=== PATIENT | female | born 1955 | race Caucasian/White ===

== ENCOUNTER → 2018-03-18 | Outpatient (CLI) | payer OTHER ==
--- NOTE | 2018-03-18 10:45 | RAD ---
2 view left hip study Clinical indications: Disability determination. Left hip pain. FINDINGS: No acute fracture or dislocation or osteolytic process is seen. There is mild degenerative spurring of the left femoral head. There is mild degenerative subchondral cyst formation of the superior lateral aspect of the acetabulum. No significant joint space narrowing is seen. IMPRESSION: No acute osseous abnormality. Mild primary degenerative osteoarthritis of the left hip joint. Electronically signed by: Shankar Fierro MD (03/18/2018 10:41 AM) [facility]
== END | disposition home or self-care (01) ==
LOC: DXRAD 09:28
PROVIDERS: ATTEND Surgery
DX: Z02.71 Encounter for disability determination (principal); M16.12 Unilateral primary osteoarthritis, left hip
CPT/HCPCS: 73502

== ENCOUNTER 2018-10-25 17:54 | Inpatient (IN) | payer SELFPAY ==
[~2018-10-25] VITALS: Ht 175.3 cm; Wt 102.1 kg
[2018-10-25] MEDS ORDERED: IV RINGERS SOLUTION,LACTATED 1,000 ML IV SCH (17:57)
[2018-10-25 18:37] LABS: BASO # 0.1 x10^3/uL (0.0-0.2); BASO % 1 % (0-3); EOS # 0.1 x10^3/uL (0.0-0.7); EOS % 1 % (0-3); HEMATOCRIT 37.9 % (36.0-47.0); HEMOGLOBIN 12.6 g/dL (12.0-15.5); LYMPH # 2.4 x10^3/uL (1.0-4.8); LYMPH % 27 % (24-48); MEAN CORPUSCULAR HEMOGLOBIN 30 pg (25-35); MEAN CORPUSCULAR HGB CONC 33 g/dL (31-37); MEAN CORPUSCULAR VOLUME 91 fL (79-100); MONO # 0.4 x10^3/uL (0.0-1.1); MONO % 4 % (0-9); NEUT # 6.2 x10^3uL (1.8-7.7); NEUT % 68 % (31-73); PLATELET COUNT 435 x10^3/uL (140-400); RED BLOOD COUNT 4.18 x10^6/uL (3.50-5.40); RED CELL DISTRIBUTION WIDTH 14.8 % (11.5-14.5); WHITE BLOOD COUNT 9.2 x10^3/uL (4.0-11.0)
--- NOTE | 2018-10-25 18:40 | EKG ---
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
[2018-10-25 18:42] LABS: BGAS PH 7.34 (7.35-7.45)
[2018-10-25 19:00] LABS: ALBUMIN 3.4 g/dL (3.4-5.0); CREATININE 1.1 mg/dL (0.6-1.0); DIRECT BILIRUBIN 0.1 mg/dL (0.0-0.2); MAGNESIUM 2.3 mg/dL (1.8-2.4); POTASSIUM 3.7 mmol/L (3.5-5.1); TOTAL BILIRUBIN 0.2 mg/dL (0.2-1.0); TOTAL PROTEIN 7.4 g/dL (6.4-8.2)
[2018-10-25 19:21] LABS: BARBITURATES NEG (NEG); BENZODIAZEPINES POS (NEG); CANNABINOIDS POS (NEG); COCAINE NEG (NEG); METHADONE NEG (NEG); OPIATES NEG (NEG); PHENCYCLIDINE NEG (NEG)
[2018-10-25 19:22] LABS: AMPHETAMINE/METHAMPHETAMINE NEG (NEG)
[2018-10-25 19:55] LABS: BACTERIA,URINE FEW /HPF (0-FEW); BILIRUBIN,URINE NEG (NEG); CLARITY,URINE HAZY; COLOR,URINE YELLOW; GLUCOSE,URINE >=1000 mg/dL (NEG); GRANULAR CASTS,URINE FEW /HPF; HYALINE CASTS, URINE MOD /HPF; NITRITE,URINE NEG (NEG); SQUAMOUS EPITHELIAL CELL,UR FEW /LPF; UROBILINOGEN,URINE 0.2 mg/dL (0.2 mg/dL)
--- NOTE | 2018-10-25 19:57 | ED.ADGEN ---
Past History Past Medical History: Diabetes, Other Adult General Chief Complaint Chief Complaint ".. I.... took ... some ..my husbands... meds...." ( Oxycodone)... " HPI HPI Patient is a 63 year old female who presents with hx of apparent over dose- that responded to nasal Narcan.x 2. Patient found nonresponsive and in respiratory distress by paramedics. Patient has apparently taken some of her 's oxycodone. Patient remained very groggy but gradually improved during ED visit. Patient does have a history of diabetes. Review of Systems Review of Systems Patient is a very poor historian Constitutional: Denies fever or chills [] Eyes: Denies change in visual acuity, redness, or eye pain [] HENT: Denies nasal congestion or sore throat [] Respiratory: Denies cough or shortness of breath [] Cardiovascular: No additional information not addressed in HPI [] GI: Denies abdominal pain, nausea, vomiting, bloody stools or diarrhea [] : Denies dysuria or hematuria [] Musculoskeletal: Denies back pain or joint pain [] Integument: Denies rash or skin lesions [] Neurologic: Denies headache, focal weakness or sensory changes [] Endocrine: Denies polyuria or polydipsia [] All other systems were reviewed and found to be within normal limits, except as documented in this note. Family History Family History Not currently available Current Medications Current Medications Current Medications Medications (Trade) Dose Ordered Sig/Apoorva Start Time Stop Time Status Last Admin Dose Admin Lactated Ringer's 1,000 ml @ 1,000 mls/hr Q1H 10/25/18 17:57 10/25/18 18:56 DC 10/25/18 18:28 1,000 MLS/HR Ondansetron HCl (Zofran) 4 mg PRN Q4HRS PRN 10/25/18 20:00 10/26/18 19:59 Allergies Allergies Allergies Coded Allergies Type Severity Reaction Last Updated Verified No Known Drug Allergies 10/25/18 No Physical Exam Physical Exam Constitutional: , no acute distress, drug or intoxicated in appearance. [] HENT: Normocephalic, atraumatic, bilateral external ears normal, oropharynx moist, no oral exudates, nose normal. [] Eyes: PERRLA, EOMI, conjunctiva normal, no discharge. [] Neck: Normal range of motion, no tenderness, supple, no stridor. [] Cardiovascular: Tachycardia Heart rate ill-regular rate and rhythm no murmur [] Lungs & Thorax: Bilateral breath sounds equal apexes scattered wheezes and basilar crackles auscultation [] Abdomen: Bowel sounds decreased, soft, no tenderness, no masses, no pulsatile masses. [] Skin: Warm, dry, no erythema, no rash. [] Back: No tenderness, no CVA tenderness. [] Extremities: No tenderness, no cyanosis, no clubbing, ROM intact, no edema. [] Neurologic: Alert and oriented but very slow to respond, moves all extremities on request., no(gross focal deficits noted. [] Psychologic: Affect flat, judgment impaired mood depressed. Current Patient Data Vital Signs Vital Signs Date Time Temp Pulse Resp B/P (MAP) Pulse Ox O2 Delivery O2 Flow Rate FiO2 10/25/18 17:55 97.5 84 12 93 Room Air Lab Results Laboratory Tests Test 10/25/18 18:15 10/25/18 18:35 10/25/18 18:51 White Blood Count 9.2 x10^3/uL (4.0-11.0) Red Blood Count 4.18 x10^6/uL (3.50-5.40) Hemoglobin 12.6 g/dL (12.0-15.5) Hematocrit 37.9 % (36.0-47.0) Mean Corpuscular Volume 91 fL (79-100) Mean Corpuscular Hemoglobin 30 pg (25-35) Mean Corpuscular Hemoglobin Concent 33 g/dL (31-37) Red Cell Distribution Width 14.8 % (11.5-14.5) H Platelet Count 435 x10^3/uL (140-400) H Neutrophils (%) (Auto) 68 % (31-73) Lymphocytes (%) (Auto) 27 % (24-48) Monocytes (%) (Auto) 4 % (0-9) Eosinophils (%) (Auto) 1 % (0-3) Basophils (%) (Auto) 1 % (0-3) Neutrophils # (Auto) 6.2 x10^3uL (1.8-7.7) Lymphocytes # (Auto) 2.4 x10^3/uL (1.0-4.8) Monocytes # (Auto) 0.4 x10^3/uL (0.0-1.1) Eosinophils # (Auto) 0.1 x10^3/uL (0.0-0.7) Basophils # (Auto) 0.1 x10^3/uL (0.0-0.2) Prothrombin Time 9.8 SEC (9.4-11.4) Prothrombin Time INR 1.0 (0.9-1.1) PTT 23 SEC (23-33) Sodium Level 140 mmol/L (136-145) Potassium Level 3.7 mmol/L (3.5-5.1) Chloride Level 101 mmol/L (98-107) Carbon Dioxide Level 23 mmol/L (21-32) Anion Gap 16 (6-14) H Blood Urea Nitrogen 19 mg/dL (7-20) Creatinine 1.1 mg/dL (0.6-1.0) H Estimated GFR (Cockcroft-Gault) 50.0 Glucose Level 364 mg/dL (70-99) H Calcium Level 9.0 mg/dL (8.5-10.1) Magnesium Level 2.3 mg/dL (1.8-2.4) Total Bilirubin 0.2 mg/dL (0.2-1.0) Direct Bilirubin 0.1 mg/dL (0.0-0.2) Aspartate Amino Transferase (AST) 39 U/L (15-37) H Alanine Aminotransferase (ALT) 29 U/L (14-59) Alkaline Phosphatase 80 U/L (46-116) Creatine Kinase 66 U/L (26-192) Troponin I Quantitative 0.033 ng/mL (0-0.055) UF-Gpg-P-Type Natriuretic Peptide 123 pg/mL (0-124) Total Protein 7.4 g/dL (6.4-8.2) Albumin 3.4 g/dL (3.4-5.0) Lipase 218 U/L (73-393) Salicylates Level 3.4 mg/dL (2.8-20.0) Salicylate Last Dose Date Unknown Salicylate Last Dose Time Unknown Acetaminophen Level < 2.0 mcg/mL (10-30) L Acetaminophen Last Dose Date Unknown Acetaminophen Last Dose Time Unknown Ethyl Alcohol Level < 10 mg/dL (0-10) Blood pH 7.34 (7.35-7.45) L Blood Gas PCO2 43 mmHg (35-45) Blood Gas PO2 71 mmHg (80-100) L Blood Gas HCO3 23 mmol/L (22-26) Arterial Bld O2 Saturation (Calc) 93 % (92-99) FiO2 21 % Urine Collection Type Unknown Urine Color Yellow Urine Clarity Hazy Urine pH 5.0 Urine Specific Clarkson >=1.030 Urine Protein 30 mg/dl (NEG-TRACE) Urine Glucose (UA) >=1000 mg/dL (NEG) Urine Ketones (Stick) Neg mg/dL (NEG) Urine Blood Trace (NEG) Urine Nitrite Neg (NEG) Urine Bilirubin Neg (NEG) Urine Urobilinogen Dipstick 0.2 mg/dL (0.2 mg/dL) Urine Leukocyte Esterase Neg (NEG) Urine RBC 3-5 /HPF (0-2) Urine WBC 1-4 /HPF (0-4) Urine Squamous Epithelial Cells Few /LPF Urine Bacteria Few /HPF (0-FEW) Urine Hyaline Casts Mod /HPF Urine Granular Casts Few /HPF Urine Mucus Slight /LPF Urine Opiates Screen Neg (NEG) Urine Methadone Screen Neg (NEG) Urine Barbiturates Neg (NEG) Urine Phencyclidine Screen Neg (NEG) Urine Amphetamine/Methamphetamine Neg (NEG) Urine Benzodiazepines Screen Pos (NEG) Urine Cocaine Screen Neg (NEG) Urine Cannabinoids Screen Pos (NEG) Urine Ethyl Alcohol Neg (NEG) EKG EKG My interpretation EKG shows a venous rate of 114 bpm. Appears to have atrial fibrillation. No findings of acute STEMI with contralateral changes. Does have septal delay[] Radiology/Procedures Radiology/Procedures I interpretation chest x-ray shows no acute cardiopulmonary findings.[] Course & Med Decision Making Course & Med Decision Making Pertinent Labs and Imaging studies reviewed. (See chart for details) [] Final Impression Final Impression 1. Mental Status Change 2. Suspect Overdosage- responded to nasal Narcan[] 3. DM 364 4. Elevated Creat l.l 5. Hypoxia 6. A. Fib. Vent rate 114 7. + Drug screen Marijuana and Benzo 8. Dehydration Dragon Disclaimer Dragon Disclaimer This electronic medical record was generated, in whole or in part, using a voice recognition dictation system. Dragon Disclaimer This chart was dictated in whole or in part using Voice Recognition software in a busy, high-work load, and often noisy Emergency Department environment. It may contain unintended and wholly unrecognized errors or omissions. Discharge Summary Visit Information Final Diagnosis Problems Medical Problems: (1) Overdose Status: Acute Brief Hospital Course Allergies Allergies Coded Allergies Type Severity Reaction Last Updated Verified No Known Drug Allergies 10/25/18 No Vital Signs Vital Signs Date Time Temp Pulse Resp B/P (MAP) Pulse Ox O2 Delivery O2 Flow Rate FiO2 10/25/18 17:55 97.5 84 12 93 Room Air Lab Results Laboratory Tests Test 10/25/18 18:15 10/25/18 18:35 10/25/18 18:51 White Blood Count 9.2 x10^3/uL (4.0-11.0) Red Blood Count 4.18 x10^6/uL (3.50-5.40) Hemoglobin 12.6 g/dL (12.0-15.5) Hematocrit 37.9 % (36.0-47.0) Mean Corpuscular Volume 91 fL (79-100) Mean Corpuscular Hemoglobin 30 pg (25-35) Mean Corpuscular Hemoglobin Concent 33 g/dL (31-37) Red Cell Distribution Width 14.8 % (11.5-14.5) Platelet Count 435 x10^3/uL (140-400) Neutrophils (%) (Auto) 68 % (31-73) Lymphocytes (%) (Auto) 27 % (24-48) Monocytes (%) (Auto) 4 % (0-9) Eosinophils (%) (Auto) 1 % (0-3) Basophils (%) (Auto) 1 % (0-3) Neutrophils # (Auto) 6.2 x10^3uL (1.8-7.7) Lymphocytes # (Auto) 2.4 x10^3/uL (1.0-4.8) Monocytes # (Auto) 0.4 x10^3/uL (0.0-1.1) Eosinophils # (Auto) 0.1 x10^3/uL (0.0-0.7) Basophils # (Auto) 0.1 x10^3/uL (0.0-0.2) Prothrombin Time 9.8 SEC (9.4-11.4) Prothromb Time International Ratio 1.0 (0.9-1.1) Activated Partial Thromboplast Time 23 SEC (23-33) Sodium Level 140 mmol/L (136-145) Potassium Level 3.7 mmol/L (3.5-5.1) Chloride Level 101 mmol/L (98-107) Carbon Dioxide Level 23 mmol/L (21-32) Anion Gap 16 (6-14) Blood Urea Nitrogen 19 mg/dL (7-20) Creatinine 1.1 mg/dL (0.6-1.0) Estimated GFR (Cockcroft-Gault) 50.0 Glucose Level 364 mg/dL (70-99) Calcium Level 9.0 mg/dL (8.5-10.1) Magnesium Level 2.3 mg/dL (1.8-2.4) Total Bilirubin 0.2 mg/dL (0.2-1.0) Direct Bilirubin 0.1 mg/dL (0.0-0.2) Aspartate Amino Transf (AST/SGOT) 39 U/L (15-37) Alanine Aminotransferase (ALT/SGPT) 29 U/L (14-59) Alkaline Phosphatase 80 U/L (46-116) Creatine Kinase 66 U/L (26-192) Troponin I Quantitative 0.033 ng/mL (0-0.055) UY-Efz-O-Type Natriuretic Peptide 123 pg/mL (0-124) Total Protein 7.4 g/dL (6.4-8.2) Albumin 3.4 g/dL (3.4-5.0) Lipase 218 U/L (73-393) Salicylates Level 3.4 mg/dL (2.8-20.0) Salicylate Last Dose Date Unknown Salicylate Last Dose Time Unknown Acetaminophen Level < 2.0 mcg/mL (10-30) Acetaminophen Last Dose Date Unknown Acetaminophen Last Dose Time Unknown Ethyl Alcohol Level < 10 mg/dL (0-10) Blood Gas pH 7.34 (7.35-7.45) Blood Gas PCO2 43 mmHg (35-45) Blood Gas PO2 71 mmHg (80-100) Blood Gas HCO3 23 mmol/L (22-26) Arterial Bld O2 Saturation (Calc) 93 % (92-99) FiO2 21 % Urine Collection Type Unknown Urine Color Yellow Urine Clarity Hazy Urine pH 5.0 Urine Specific Clarkson >=1.030 Urine Protein 30 mg/dl (NEG-TRACE) Urine Glucose (UA) >=1000 mg/dL (NEG) Urine Ketones (Stick) Neg mg/dL (NEG) Urine Blood Trace (NEG) Urine Nitrite Neg (NEG) Urine Bilirubin Neg (NEG) Urine Urobilinogen Dipstick 0.2 mg/dL (0.2 mg/dL) Urine Leukocyte Esterase Neg (NEG) Urine RBC 3-5 /HPF (0-2) Urine WBC 1-4 /HPF (0-4) Urine Squamous Epithelial Cells Few /LPF Urine Bacteria Few /HPF (0-FEW) Urine Hyaline Casts Mod /HPF Urine Granular Casts Few /HPF Urine Mucus Slight /LPF Urine Opiates Screen Neg (NEG) Urine Methadone Screen Neg (NEG) Urine Barbiturates Neg (NEG) Urine Phencyclidine Screen Neg (NEG) Urine Amphetamine/Methamphetamine Neg (NEG) Urine Benzodiazepines Screen Pos (NEG) Urine Cocaine Screen Neg (NEG) Urine Cannabinoids Screen Pos (NEG) Urine Ethyl Alcohol Neg (NEG) Brief Hospital Course Ms. Faulkner is a 63 old female who presented with hx of drug overdose- responded to nasal Narcan x 2. Admitted to Dr. Carr. Discharge Information Condition at Discharge: Improved Dischare Medications Current Medications Lactated Ringer's 1,000 ml @ 1,000 mls/hr Q1H IV Last administered on at 18:28; Admin Dose 1,000 MLS/HR; Start 10/25/18 at 17:57; Stop 10/25/18 at 18: 56; Status DC Ondansetron HCl (Zofran) 4 mg PRN Q4HRS PRN IV NAUSEA/VOMITING; Start 10/25/18 at 20:00; Stop 10/26/18 at 19:59 JOSE ALBERTO MONTGOMERY MD Oct 25, 2018 19:57
--- NOTE | 2018-10-25 19:59 | RAD ---
EXAM: Chest, single view. HISTORY: Overdose. COMPARISON: None. FINDINGS: A frontal view of the chest is obtained. There is no infiltrate, pleural effusion or pneumothorax. The heart is normal in size for portable technique. IMPRESSION: No acute pulmonary finding. Electronically signed by: Carmen Piña MD (10/25/2018 7:56 PM) [facility]
[2018-10-25] MEDS ORDERED: ONDANSETRON PF 4 MG/2 ML VIAL. IV PRN (20:00)
[2018-10-25 20:28] LABS: ACETAMIN < 2.0 mcg/mL (10-30); SALIC 3.4 mg/dL (2.8-20.0)
[2018-10-25 21:58] VITALS: BP 135/80
[2018-10-25] MEDS ORDERED: ANTI-COAG MONITOR BY PHARMACY. MC PRN (23:45)
[2018-10-26] MEDS ORDERED: IBUP400T18 PO (03:21)
[2018-10-26] MEDS ORDERED: ASPI325T8 PO (03:21)
[2018-10-26] MEDS: ENOXAPARIN ** NOTE DOSE ** SYRINGE SQ SCH ×3 (03:57→21:25)
[2018-10-26] MEDS: ACETAMINOPHEN 325 MG TABLET PO PRN ×2 (03:57→07:49)
[2018-10-26 06:28] LABS: BASO # 0.1 x10^3/uL (0.0-0.2); BASO % 1 % (0-3); EOS % 0 % (0-3); HEMATOCRIT 36.9 % (36.0-47.0); HEMOGLOBIN 12.3 g/dL (12.0-15.5); LYMPH # 1.8 x10^3/uL (1.0-4.8); LYMPH % 13 % (24-48); MEAN CORPUSCULAR HEMOGLOBIN 30 pg (25-35); MEAN CORPUSCULAR HGB CONC 33 g/dL (31-37); MEAN CORPUSCULAR VOLUME 91 fL (79-100); MONO # 0.9 x10^3/uL (0.0-1.1); MONO % 7 % (0-9); NEUT # 10.6 x10^3uL (1.8-7.7); NEUT % 79 % (31-73); PLATELET COUNT 363 x10^3/uL (140-400); RED BLOOD COUNT 4.07 x10^6/uL (3.50-5.40); RED CELL DISTRIBUTION WIDTH 14.9 % (11.5-14.5); WHITE BLOOD COUNT 13.4 x10^3/uL (4.0-11.0)
[2018-10-26 06:36] LABS: CALCIUM 9.1 mg/dL (8.5-10.1); CREATININE 0.8 mg/dL (0.6-1.0); GFR 72.2; POTASSIUM 4.3 mmol/L (3.5-5.1)
[2018-10-26 06:39] VITALS: BP 123/77
[2018-10-26 11:17] VITALS: BP 116/77
[2018-10-26] MEDS ORDERED: DEXTROSE 50% 25 GM / 50ML DISP.SYRIN. IV PRN (12:30)
[2018-10-26] MEDS: METOPROLOL TART IMMED RELEASE 25 MG TABLET PO SCH ×2 (13:14→21:25)
--- NOTE | 2018-10-26 15:20 | HP ---
ADMIT DATE: 10/26/2018 HISTORY OF PRESENT ILLNESS: The patient is a 63-year-old female patient, who apparently was found by the landlord together with her unresponsive. Apparently, she took some of her 's oxycodone and has responded to nasal Narcan x 2. She was actually found unresponsive and in respiratory distress by paramedics. By the time she arrived to the Emergency Room her level of consciousness has improved. On questioning her as to why she took the medications said she has generalized aches and pains, all her joints are aching and she combined her oxycodone with the Ativan. PAST MEDICAL HISTORY: Apparently unremarkable. She has not seen a doctor for more than 10 years, although she does have generalized osteoarthritis. Her blood sugar was high at 364 indicating that she is diabetic. She has bilateral cataract that has not been removed surgically yet. PAST SURGICAL HISTORY: Significant for cyst removal of her right side of the neck, total abdominal hysterectomy, bilateral salpingo-oophorectomy. ALLERGIES: She has no known drug allergies. MEDICATIONS: She is normally on [id number] medication taking aspirin, ibuprofen and Tylenol for her aches and pains. FAMILY HISTORY: She has one brother older and alive, does not know any medical problem. FAMILY HISTORY: Her father at age of 81, the cause of is not known and her mother of old age. Again, she does not know the cause of her . SOCIAL HISTORY: She is , but apparently still lives with her ex-. She has a son and a daughter. She smokes 2-3 cigarettes per day. She does not drink alcohol, but uses marijuana. 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 REVIEW OF SYSTEMS: She has bilateral cataracts, but denied any glaucoma or macular degeneration. Denied any earache, tinnitus or sensorineural deafness. Denied any nosebleeds, stuffy nose or postnasal drip. Denied any sore throat, sore tongue, toothache, hoarseness of voice or difficulty swallowing. She denied any nausea, vomiting, diarrhea or constipation. Denied any hematemesis, melena or hematochezia. Denied any dysuria, frequency or hematuria. Denied any chest pain, shortness of breath, orthopnea, paroxysmal nocturnal dyspnea. Denied any cough, phlegm or hemoptysis. PHYSICAL EXAMINATION: GENERAL: On arrival to the Emergency Room, she was groggy, but arousable. She was slightly pale, but no jaundice, cyanosis, or thyromegaly. No jugular venous distension. No lower limb edema. VITAL SIGNS: Her heart rate was 117 and irregularly irregular. Her blood pressure was 135/90, temperature was 97.6, respiratory rate was 18 and oxygen saturation was 97% on room air. HEAD, EYES, EARS, NOSE AND THROAT: Normocephalic, atraumatic. NECK: Supple. HEART: Showed normal first and second heart sounds. No gallop, rub or murmur. CHEST: Clear to auscultation. No crepitation or rhonchi. ABDOMEN: Distended, soft, nontender. No guarding or rigidity. No organomegaly. All hernial orifice intact. Bowel sounds normal. NEUROLOGIC: She was lethargic, but arousable. She did respond well to the nasal Narcan. All her cranial nerves intact. EXTREMITIES: She moves extremities without difficulty. LABORATORY DATA: While in the Emergency Room, she has had lab work done, which showed a white cell count 9200, hemoglobin 12.6, hematocrit 37.69, MCV 91, and platelet count of 435,000 with a manual differential showed 68% polymorphs and 27 lymphocytes. Her blood gases showed a pH of 7.34, pCO2 of 43, pO2 of 71, bicarbonate 23, and oxygen saturation was 93% and FiO2 of 21%. Her prothrombin time was 9.8, INR of 1, aPTT was 23. Her urinalysis showed the urine was yellow, hazy with a pH of 5, specific gravity of 1.030. There is a small amount of protein, large amount of glucose. Her ketones were negative. There was trace of blood, negative for nitrite and leukocyte esterase with 3-5 rbc's, 1-4 wbc's, very few bacteria. Her toxic screen was positive for cannabinoids and benzodiazepine. While in the Emergency Room, she has had a chest x-ray done, which showed that she has no acute pulmonary finding. ASSESSMENT AND PLAN: The patient was admitted with altered mental status that she has apparently overdosed on her 's oxycodone. She was found to have type 2 diabetes as her blood sugar was high at 354 and new onset atrial fibrillation. Her creatinine was slightly elevated. She has also hypoxic respiratory failure and her drug screen was positive for marijuana and benzos. She was slightly dehydrated and her creatinine also slightly elevated to 1.1. We will continue with IV fluid and we will monitor her blood sugar and also consult the cardiology team for new onset atrial fibrillation. MEJIA RESTREPO MD DR: TATI/sue JOB#: [id number] / [id number]
[2018-10-26 15:27] VITALS: BP 122/86
[2018-10-26] MEDS: INSULIN LISPRO 300 UNITS/3 ML INSULN.PEN. SQ SCH (17:00)
[2018-10-26 19:30] VITALS: BP 114/79
[2018-10-26 22:15] VITALS: BP 129/83
--- NOTE | 2018-10-26 22:43 | PN ---
DATE: 10/26/2018 SUBJECTIVE: The patient is resting, slightly propped up in bed, in no apparent distress. She is awake, alert. On questioning her, she denied any complaint except her aches and pains. Denied any palpitation. Denied any dizziness, lightheadedness, or vertigo. Denied any chest pain. PHYSICAL EXAMINATION: GENERAL: When I examined her, she looked well and was clearly in no apparent respiratory distress. There was no pallor, jaundice, cyanosis, or thyromegaly. No jugular venous distension. No limb edema. VITAL SIGNS: Her heart rate was irregularly irregular, was up to 123 beats per minute. Her blood pressure was 116/77, temperature was 98.2, respiratory rate 20, and oxygen saturation was 97%. The rest of clinical examination is unremarkable and has not really changed. Her blood sugar was elevated on admission, this morning it was 121. We will do Accu-Cheks. I will arrange for her to have her thyroid function checked. We have consulted the hose maker for new-onset of atrial fibrillation, rate control and perhaps stroke prevention. In summary, this is a 63-year-old female patient, who came with; 1. Altered mental status, overdosed on her 's drug and that has resolved. 2. Acute hypoxic respiratory failure, resolved. 3. Acute kidney injury, resolved. Her creatinine has dropped from 1.1 to 0.8. She has also marijuana and benzo drug abuse. MEJIA RESTREPO MD DR: TATI/sue JOB#: [id number] / [id number]
[2018-10-26] MEDS ORDERED: DIGOXIN IV 500 MCG/2 ML AMPUL. IV ONE (23:00)
[2018-10-27 00:10] VITALS: BP 104/74
[2018-10-27] MEDS: diphenhydrAMINE HCL 25 MG CAPSULE PO PRN ×2 (01:18→21:16)
[2018-10-27 05:10] VITALS: BP 109/70
--- NOTE | 2018-10-27 05:44 | PDOC2 ---
CONSULT Date of Admission DATE: 10/26/18 TIME: 2209 Reason for Consult: Atrial fibrillation Referring Physician: Dr. Carr Chief Complaint nonresponsiveness Source: Chart review Problem List Problems Medical Problems: (1) Overdose Status: Acute History of Present Illness The patient is a 63-year-old female who was found nonresponsive by her family and paramedics were called. The patient responded to Narcan and is thought to have taken some of her family members opioid medications. She has not seen a physician for "more than 10 years. Her glucose level was significantly elevated and she has been treated for this. She also been found to be in atrial fibrillation with a rate of approximately 110. There is no clear history of atrial fibrillation but again the patient has not seen a physician for more than 10 years. This afternoon she is groggy and fatigued but responsive. Cardiovascular: HTN Endocrine: Diabetes Past Surgical History: Hysterectomy, Other (salpingo-oophorectomy) Family History: Other (no documented coronary disease or arrhythmias) Smoke: <1 pack per day ALCOHOL: none Drugs: Marijuana Current Medications Current Medications Lactated Ringer's 1,000 ml @ 1,000 mls/hr Q1H IV Last administered on at 18:28; Start 10/25/18 at 17:57; Stop 10/25/18 at 18:56; Status DC Ondansetron HCl (Zofran) 4 mg PRN Q4HRS PRN IV NAUSEA/VOMITING Last administered on 10/26/18at 06:01; Start 10/25/18 at 20:00; Stop 10/26/18 at 19:59; Status DC Enoxaparin Sodium (Lovenox 100mg Syringe) 100 mg Q12HR SQ Last administered on 10/26/18at 21:25; Start 10/26/18 at 00:00 Info (Anti-Coagulation Monitoring By Pharmacy) 1 each PRN DAILY PRN MC SEE COMMENTS; Start 10/25/18 at 23:45 Influenza Virus Vaccine (Afluria Trivalent [id number] Syringe) 0.5 ml ONCE ONCE VAX IM Last administered on 10/26/18at 07:54; Start 10/26/18 at 09:00; Stop at 09:01; Status DC Acetaminophen (Tylenol) 650 mg PRN Q6HRS PRN PO PAIN / TEMP Last administered on 10/26/18at 07:49; Start 10/26/18 at 03:45 Insulin Human Lispro (HumaLOG) 0-5 UNITS TIDWMEALS SQ ; Start 10/26/18 at 17:00 Dextrose 12.5 gm PRN Q15MIN PRN IV SEE COMMENTS; Start 10/26/18 at 12:30 Metoprolol Tartrate (Lopressor) 25 mg BID PO Last administered on 10/26/18at 21: 25; Start 10/26/18 at 13:00 Ibuprofen (Motrin) 400 mg PRN Q6HRS PRN PO INFLAMMATION; Start 10/26/18 at 12:45 Aspirin (Harley Aspirin) 325 mg DAILY PO ; Start 10/27/18 at 09:00 Diphenhydramine HCl (Benadryl) 25 mg PRN QHS PRN PO INSOMNIA Last administered on 10/27/18at 01:18; Start 10/26/18 at 19:00 Digoxin (Lanoxin) 250 mcg 1X ONCE IV Last administered on 10/26/18at 23:05; Start 10/26/18 at 23:00; Stop 10/26/18 at 23:01; Status DC Diltiazem HCl (Cardizem 24hr Cd) 120 mg 1X ONCE PO Last administered on at 23:05; Start 10/26/18 at 23:00; Stop 10/26/18 at 23:01; Status DC Diltiazem HCl (Cardizem 24hr Cd) 120 mg DAILY PO ; Start 10/27/18 at 09:00 Active Scripts Active Reported Ibuprofen 400 Mg Tablet 1 Tab PO PRN Q6HRS Aspirin 325 Mg Tablet 1 Tab PO DAILY Allergies: Coded Allergies: No Known Drug Allergies (Unverified , 10/25/18) General: YES: Fatigue, Malaise General: No acute distress HEENT: Atraumatic Lungs: Clear to auscultation Heart: Other (irregularly irregular) VITALS Vital Signs Date Time Temp Pulse Resp B/P (MAP) Pulse Ox O2 Delivery O2 Flow Rate FiO2 10/27/18 05:10 97.5 86 18 109/70 (83) 96 Room Air Labs Laboratory Tests Test 10/25/18 18:15 10/25/18 18:35 10/25/18 18:51 10/26/18 06:17 White Blood Count 9.2 x10^3/uL (4.0-11.0) 13.4 x10^3/uL (4.0-11.0) Red Blood Count 4.18 x10^6/uL (3.50-5.40) 4.07 x10^6/uL (3.50-5.40) Hemoglobin 12.6 g/dL (12.0-15.5) 12.3 g/dL (12.0-15.5) Hematocrit 37.9 % (36.0-47.0) 36.9 % (36.0-47.0) Mean Corpuscular Volume 91 fL (79-100) 91 fL (79-100) Mean Corpuscular Hemoglobin 30 pg (25-35) 30 pg (25-35) Mean Corpuscular Hemoglobin Concent 33 g/dL (31-37) 33 g/dL (31-37) Red Cell Distribution Width 14.8 % (11.5-14.5) 14.9 % (11.5-14.5) Platelet Count 435 x10^3/uL (140-400) 363 x10^3/uL (140-400) Neutrophils (%) (Auto) 68 % (31-73) 79 % (31-73) Lymphocytes (%) (Auto) 27 % (24-48) 13 % (24-48) Monocytes (%) (Auto) 4 % (0-9) 7 % (0-9) Eosinophils (%) (Auto) 1 % (0-3) 0 % (0-3) Basophils (%) (Auto) 1 % (0-3) 1 % (0-3) Neutrophils # (Auto) 6.2 x10^3uL (1.8-7.7) 10.6 x10^3uL (1.8-7.7) Lymphocytes # (Auto) 2.4 x10^3/uL (1.0-4.8) 1.8 x10^3/uL (1.0-4.8) Monocytes # (Auto) 0.4 x10^3/uL (0.0-1.1) 0.9 x10^3/uL (0.0-1.1) Eosinophils # (Auto) 0.1 x10^3/uL (0.0-0.7) 0.0 x10^3/uL (0.0-0.7) Basophils # (Auto) 0.1 x10^3/uL (0.0-0.2) 0.1 x10^3/uL (0.0-0.2) Prothrombin Time 9.8 SEC (9.4-11.4) Prothromb Time International Ratio 1.0 (0.9-1.1) Activated Partial Thromboplast Time 23 SEC (23-33) Sodium Level 140 mmol/L (136-145) 140 mmol/L (136-145) Potassium Level 3.7 mmol/L (3.5-5.1) 4.3 mmol/L (3.5-5.1) Chloride Level 101 mmol/L (98-107) 102 mmol/L (98-107) Carbon Dioxide Level 23 mmol/L (21-32) 29 mmol/L (21-32) Anion Gap 16 (6-14) 9 (6-14) Blood Urea Nitrogen 19 mg/dL (7-20) 22 mg/dL (7-20) Creatinine 1.1 mg/dL (0.6-1.0) 0.8 mg/dL (0.6-1.0) Estimated GFR (Cockcroft-Gault) 50.0 72.2 Glucose Level 364 mg/dL (70-99) 121 mg/dL (70-99) Calcium Level 9.0 mg/dL (8.5-10.1) 9.1 mg/dL (8.5-10.1) Magnesium Level 2.3 mg/dL (1.8-2.4) Total Bilirubin 0.2 mg/dL (0.2-1.0) Direct Bilirubin 0.1 mg/dL (0.0-0.2) Aspartate Amino Transf (AST/SGOT) 39 U/L (15-37) Alanine Aminotransferase (ALT/SGPT) 29 U/L (14-59) Alkaline Phosphatase 80 U/L (46-116) Creatine Kinase 66 U/L (26-192) Troponin I Quantitative 0.033 ng/mL (0-0.055) AA-Tfn-A-Type Natriuretic Peptide 123 pg/mL (0-124) Total Protein 7.4 g/dL (6.4-8.2) Albumin 3.4 g/dL (3.4-5.0) Lipase 218 U/L (73-393) Thyroid Stimulating Hormone (TSH) 18.006 uIU/mL (0.358-3.740) Salicylates Level 3.4 mg/dL (2.8-20.0) Salicylate Last Dose Date Unknown Salicylate Last Dose Time Unknown Acetaminophen Level < 2.0 mcg/mL (10-30) Acetaminophen Last Dose Date Unknown Acetaminophen Last Dose Time Unknown Ethyl Alcohol Level < 10 mg/dL (0-10) Blood Gas pH 7.34 (7.35-7.45) Blood Gas PCO2 43 mmHg (35-45) Blood Gas PO2 71 mmHg (80-100) Blood Gas HCO3 23 mmol/L (22-26) Arterial Bld O2 Saturation (Calc) 93 % (92-99) FiO2 21 % Urine Collection Type Unknown Urine Color Yellow Urine Clarity Hazy Urine pH 5.0 Urine Specific Galva >=1.030 Urine Protein 30 mg/dl (NEG-TRACE) Urine Glucose (UA) >=1000 mg/dL (NEG) Urine Ketones (Stick) Neg mg/dL (NEG) Urine Blood Trace (NEG) Urine Nitrite Neg (NEG) Urine Bilirubin Neg (NEG) Urine Urobilinogen Dipstick 0.2 mg/dL (0.2 mg/dL) Urine Leukocyte Esterase Neg (NEG) Urine RBC 3-5 /HPF (0-2) Urine WBC 1-4 /HPF (0-4) Urine Squamous Epithelial Cells Few /LPF Urine Bacteria Few /HPF (0-FEW) Urine Hyaline Casts Mod /HPF Urine Granular Casts Few /HPF Urine Mucus Slight /LPF Urine Opiates Screen Neg (NEG) Urine Methadone Screen Neg (NEG) Urine Barbiturates Neg (NEG) Urine Phencyclidine Screen Neg (NEG) Urine Amphetamine/Methamphetamine Neg (NEG) Urine Benzodiazepines Screen Pos (NEG) Urine Cocaine Screen Neg (NEG) Urine Cannabinoids Screen Pos (NEG) Urine Ethyl Alcohol Neg (NEG) Test 10/26/18 12:34 10/26/18 16:34 10/26/18 20:36 Glucose (Fingerstick) 104 mg/dL (70-99) 111 mg/dL (70-99) 114 mg/dL (70-99) Assessment/Plan 1. Acute respiratory failure probably secondary to opioid overdose. Patient responded to Narcan. She was responsive today. 2. Atrial fibrillation of uncertain duration. Patient's rate is mildly elevated. We'll initially treat with rate control medications including beta blockers. The patient also would benefit from anticoagulation if she is judged acceptable candidate once her mental status has improved. 3. Diabetes mellitus. Elevated glucose level. Has not seen a physician in more than 10 years. As per the primary service. Thank you for allowing us to participate in the care of your patient. LUCIE PEREIRA MD Oct 27, 2018 05:44
[2018-10-27 07:13] LABS: CALCIUM 8.8 mg/dL (8.5-10.1); CREATININE 0.7 mg/dL (0.6-1.0); GFR 84.2; MAGNESIUM 1.9 mg/dL (1.8-2.4); POTASSIUM 3.6 mmol/L (3.5-5.1)
[2018-10-27] MEDS: INSULIN LISPRO 300 UNITS/3 ML INSULN.PEN. SQ SCH ×3 (08:00→17:00)
[2018-10-27] MEDS: ACETAMINOPHEN 325 MG TABLET PO PRN (08:16)
[2018-10-27] MEDS: METOPROLOL TART IMMED RELEASE 25 MG TABLET PO SCH ×2 (08:16→21:17)
[2018-10-27] MEDS: ASPIRIN 325 MG TABLET PO SCH (08:16)
[2018-10-27] MEDS: IBUPROFEN 400 MG TABLET. PO PRN ×2 (08:17→22:57)
[2018-10-27] MEDS: ENOXAPARIN ** NOTE DOSE ** SYRINGE SQ SCH ×2 (08:17→21:17)
[2018-10-27 10:48] VITALS: BP 122/85
[2018-10-27 15:54] VITALS: BP 151/86
--- NOTE | 2018-10-27 18:36 | PN ---
DATE: 10/27/2018 SUBJECTIVE: The patient is sitting comfortably in her chair, in no apparent distress. On questioning her, she stated that she has a rough time last night as her heart rate has been going higher and higher. However, with the addition of Cardizem her heart rate is now much better controlled. Denied any chest pain or shortness of breath. Her blood sugar was high on admission; however, all the subsequent measurement are within normal range. PHYSICAL EXAMINATION: GENERAL: When I examined her, she looked well, slightly pale, but no jaundice, cyanosis, or thyromegaly. No jugular venous distension. No lower limb edema. VITAL SIGNS: Her heart rate was 87, blood pressure was 122/85, temperature was 98.7, respiratory rate was 18 and oxygen saturation was 97% on room air. HEAD, EYES, EARS, NOSE AND THROAT: Showed normocephalic, atraumatic. NECK: Supple. HEART: Showed normal first and second heart sounds. No gallop, rub or murmur. CHEST: Clear to auscultation. No crepitation or rhonchi. ABDOMEN: Distended, soft, nontender. NEUROLOGIC: She was awake, alert, responding appropriately. All cranial nerves are intact. She ambulates without assistance or assistive devices. Her intake was on a 1550, no output was recorded. LABORATORY DATA: Her lab work this morning showed that her serum sodium was 143, potassium 3.6, chloride 106, bicarbonate 27, anion gap of 10, BUN 11, creatinine was 0.7, estimated GFR was 84 mL per minute. Her glucose was 98, calcium was 8.8, magnesium was 1.9. ASSESSMENT: 1. Altered mental status due to opioid overdose, resolved. 2. Acute hypoxic respiratory failure, resolved. The patient responded to Narcan. 3. Atrial fibrillation of uncertain duration for which the patient was started on beta blockers and Cardizem was added. She continues to be on Lovenox and she probably will be switched hopefully tomorrow to Eliquis and she can be discharged. 4. Hyperglycemia. Surprisingly, her initial blood sugar values were extremely high; however, all subsequent values were within acceptable range. PLAN: To continue with current plan of management. I am not sure whether she needs beta blockers and calcium channel kate and will be advised her to increase one of them to a higher level and discontinue the other. I will leave that to the operator lights, hopefully tomorrow, we can get her some free coupons for Eliquis until she gets her Medicaid card. After which, I will give her a prescription that she can fill after that. MEJIA RESTREPO MD DR: TATI/sue JOB#: [id number] / [id number]
[2018-10-27 19:42] VITALS: BP 139/77
[2018-10-27 23:28] VITALS: BP 130/87
[2018-10-28 03:10] LABS: HEMOGLOBIN A1C 5.3 % (4.8-5.6)
[2018-10-28] MEDS: IBUPROFEN 400 MG TABLET. PO PRN (05:58)
[2018-10-28 06:30] VITALS: BP 138/90
[2018-10-28] MEDS: INSULIN LISPRO 300 UNITS/3 ML INSULN.PEN. SQ SCH ×3 (08:00→17:00)
[2018-10-28] MEDS: ASPIRIN 325 MG TABLET PO SCH (08:41)
[2018-10-28] MEDS: METOPROLOL TART IMMED RELEASE 25 MG TABLET PO SCH (08:41)
[2018-10-28] MEDS: ENOXAPARIN ** NOTE DOSE ** SYRINGE SQ SCH (08:41)
[2018-10-28 10:42] VITALS: BP 136/88
[2018-10-28 15:01] VITALS: BP 156/84
--- NOTE | 2018-10-28 15:25 | CARD ---
MR#: [id number] Date of Study: 10/28/2018 Ordering Physician: DEE OROZCO, Referring Physician: MEJIA RESTREPO Tech: Monica Kelley RDCS APPROVED REPORT EXAM: Two-dimensional and M-mode echocardiogram with Doppler and color Doppler. Other Information Quality : Good Rhythm : Atrial Fibrillation INDICATION Atrial Fibrillation 2D DIMENSIONS Left Atrium(2D)3.8 (1.6-4.0cm)IVSd1.3 (0.7-1.1cm) Aortic Root(2D)3.0 (2.0-3.7cm)LVDd4.6 (3.9-5.9cm) LVOT Diameter2.1 (1.8-2.4cm)PWd1.2 (0.7-1.1cm) LVDs3.2 (2.5-4.0cm)FS (%) 30.2 % SV56.4 mlLVEF(%)57.6 (>50%) Aortic Valve AoV Peak Dano.131.5cm/sAoV VTI20.9cm AO Peak GR.6.9mmHgLVOT Peak Dano.124.5cm/s LVOT VTI 23.19cmAO Mean GR.4mmHg LILLIANA (VMAX)3.58eq8SYC (VTI)3.73cm2 Tricuspid Valve TR P. Cbighyao982fx/sRAP XUXMXLVZ4urCo TR Peak Gr.11wvSkSHJC50ekDz Pulmonary Vein S1 Jkftiwub28.2cm/sD2 Ikbgwaat19.5cm/s LEFT VENTRICLE The left ventricle is normal size. There is mild concentric left ventricular hypertrophy. The left ve ntricular systolic function is normal and the ejection fraction is within normal range. The Ejection Fraction is 60-65%. There is normal LV segmental wall motion. RIGHT VENTRICLE The right ventricle is normal size. The right ventricular systolic function is normal. ATRIA The left atrium size is normal. The right atrium size is normal. The interatrial septum is intact wit h no evidence for an atrial septal defect or patent foramen ovale as noted on 2-D or Doppler imaging. AORTIC VALVE The aortic valve is not well visualized but appears to be functioning normally by Doppler interrogati on. Doppler and Color Flow revealed no significant aortic regurgitation. There is no significant aort ic valvular stenosis. MITRAL VALVE The mitral valve is normal in structure and function. There is no evidence of mitral valve prolapse. There is no mitral valve stenosis. Doppler and Color-flow revealed trace to mild mitral regurgitation . TRICUSPID VALVE The tricuspid valve is normal in structure and function. Doppler and Color Flow revealed physiologica l tricuspid regurgitation. The PA pressure was estimated at 32 mmHg. There is no tricuspid valve sten osis. PULMONIC VALVE The pulmonic valve is not well visualized. Doppler and Color Flow revealed no pulmonic valvular regur gitation. There is no pulmonic valvular stenosis. GREAT VESSELS The aortic root is normal in size. The ascending aorta is not well seen. The IVC is normal in size an d collapses >50% with inspiration. PERICARDIAL EFFUSION There is no evidence of significant pericardial effusion. Critical Notification Critical Value: No <Conclusion> The left ventricular systolic function is normal and the ejection fraction is within normal range. Th e Ejection Fraction is 60-65%. There is normal LV segmental wall motion. Doppler and Color Flow revealed physiological tricuspid regurgitation. The PA pressure was estimated at 32 mmHg. Signed by : Fermin Butts, Electronically Approved : 10/28/2018 15:25:02
--- NOTE | 2018-10-28 15:51 | PDOC ---
PROGRESS NOTES Diagnosis Problem Problems Medical Problems: (1) Overdose Status: Acute Assessment Problems Medical Problems: (1) Overdose Status: Acute 1. atrial fibrillation - rate controlled. await echo. would suggest NOAC as duration is unknown. outpatient MCT for burden and 1 month follow up to reassess. 2. hypertension - controlled on current medications. await echo 3. respiratory failure secondary to probable opiate overdose - per PCP Subjective feeling much better. no palpitations, lightheadedness or dyspnea. no chest pain. Objective Vital Signs Date Time Temp Pulse Resp B/P (MAP) Pulse Ox O2 Delivery O2 Flow Rate FiO2 10/28/18 15:01 98.1 97 20 156/84 (108) 99 Room Air Intake and Output 10/28/18 07:00 Intake Total 1406 ml Balance 1406 ml Intake Oral 1406 ml # Voids 3 # Bowel Movements 2 Abdomen: Normal bowel sounds, Soft, No tenderness Heart: Normal S1, Normal S2, Other (no murmurs, clicks or rubs, rate and rhythm irregular. ) Extremities: No cyanosis, No edema, Normal pulses General: Alert, Oriented X3, Cooperative, No acute distress HEENT: Atraumatic Lungs: Clear to auscultation Neuro: Normal speech, Strength at 5/5 X4 ext Psych/Mental Status: Mental status NL, Mood NL Review of Relevant I have reviewed the following items shilpi (where applicable) has been applied. Labs Laboratory Tests Test 10/26/18 16:34 10/26/18 20:36 10/27/18 06:32 10/27/18 07:58 Glucose (Fingerstick) 111 mg/dL (70-99) 114 mg/dL (70-99) 90 mg/dL (70-99) Sodium Level 143 mmol/L (136-145) Potassium Level 3.6 mmol/L (3.5-5.1) Chloride Level 106 mmol/L (98-107) Carbon Dioxide Level 27 mmol/L (21-32) Anion Gap 10 (6-14) Blood Urea Nitrogen 11 mg/dL (7-20) Creatinine 0.7 mg/dL (0.6-1.0) Estimated GFR (Cockcroft-Gault) 84.2 Glucose Level 98 mg/dL (70-99) Hemoglobin A1c 5.3 % (4.8-5.6) Calcium Level 8.8 mg/dL (8.5-10.1) Magnesium Level 1.9 mg/dL (1.8-2.4) Test 10/27/18 11:45 10/27/18 17:04 10/27/18 19:48 10/28/18 07:31 Glucose (Fingerstick) 89 mg/dL (70-99) 96 mg/dL (70-99) 92 mg/dL (70-99) 85 mg/dL (70-99) Test 10/28/18 11:51 Glucose (Fingerstick) 88 mg/dL (70-99) Medications Current Medications Lactated Ringer's 1,000 ml @ 1,000 mls/hr Q1H IV Last administered on at 18:28; Start 10/25/18 at 17:57; Stop 10/25/18 at 18:56; Status DC Ondansetron HCl (Zofran) 4 mg PRN Q4HRS PRN IV NAUSEA/VOMITING Last administered on 10/26/18at 06:01; Start 10/25/18 at 20:00; Stop 10/26/18 at 19:59; Status DC Enoxaparin Sodium (Lovenox 100mg Syringe) 100 mg Q12HR SQ Last administered on 10/28/18at 08:41; Start 10/26/18 at 00:00; Stop 10/28/18 at 13:00; Status DC Info (Anti-Coagulation Monitoring By Pharmacy) 1 each PRN DAILY PRN MC SEE COMMENTS; Start 10/25/18 at 23:45; Status Cancel Influenza Virus Vaccine (Afluria Trivalent [id number] Syringe) 0.5 ml ONCE ONCE VAX IM Last administered on 10/26/18at 07:54; Start 10/26/18 at 09:00; Stop at 09:01; Status DC Acetaminophen (Tylenol) 650 mg PRN Q6HRS PRN PO PAIN / TEMP Last administered on 10/27/18at 08:16; Start 10/26/18 at 03:45 Insulin Human Lispro (HumaLOG) 0-5 UNITS TIDWMEALS SQ ; Start 10/26/18 at 17:00 Dextrose 12.5 gm PRN Q15MIN PRN IV SEE COMMENTS; Start 10/26/18 at 12:30 Metoprolol Tartrate (Lopressor) 25 mg BID PO Last administered on 10/28/18 08: 41; Start 10/26/18 at 13:00; Stop 10/28/18 at 11:14; Status DC Ibuprofen (Motrin) 400 mg PRN Q6HRS PRN PO INFLAMMATION Last administered on 05:58; Start 10/26/18 at 12:45 Aspirin (Harley Aspirin) 325 mg DAILY PO Last administered on 10/28/18 08:41; Start 10/27/18 at 09:00 Diphenhydramine HCl (Benadryl) 25 mg PRN QHS PRN PO INSOMNIA Last administered on 10/27/18 21:16; Start 10/26/18 at 19:00 Digoxin (Lanoxin) 250 mcg 1X ONCE IV Last administered on 10/26/18 23:05; Start 10/26/18 at 23:00; Stop 10/26/18 at 23:01; Status DC Diltiazem HCl (Cardizem 24hr Cd) 120 mg 1X ONCE PO Last administered on 23:05; Start 10/26/18 at 23:00; Stop 10/26/18 at 23:01; Status DC Diltiazem HCl (Cardizem 24hr Cd) 120 mg DAILY PO Last administered on 10/28/18 08:41; Start 10/27/18 at 09:00 Metoprolol Tartrate (Lopressor) 50 mg BID PO ; Start 10/28/18 at 21:00 Apixaban (Eliquis) 5 mg BID PO ; Start 10/28/18 at 21:00 Active Scripts Active Reported Ibuprofen 400 Mg Tablet 1 Tab PO PRN Q6HRS Aspirin 325 Mg Tablet 1 Tab PO DAILY Vitals/I & O Vital Sign - Last 24 Hours 10/27/18 10/27/18 10/27/18 10/27/18 15:54 19:42 20:00 21:17 Temp 98.2 97.9 Pulse 88 101 101 Resp 20 B/P (MAP) 151/86 (107) 139/77 (97) 139/77 Pulse Ox 98 97 O2 Delivery Room Air Room Air 10/27/18 10/28/18 10/28/18 10/28/18 23:28 06:30 08:00 08:41 Temp 97.7 Pulse 75 93 93 Resp 16 B/P (MAP) 130/87 (101) 138/90 (106) 138/90 Pulse Ox 95 93 O2 Delivery Room Air Room Air 10/28/18 10/28/18 10/28/18 08:41 10:42 15:01 Temp 98.3 98.1 Pulse 93 89 97 Resp 20 20 B/P (MAP) 138/90 136/88 (104) 156/84 (108) Pulse Ox 98 99 O2 Delivery Room Air Room Air Intake and Output 10/27/18 10/27/18 10/28/18 15:00 23:00 07:00 Intake Total 480 ml 490 ml 436 ml Balance 480 ml 490 ml 436 ml DEE OROZCO VP & GENERAL COUNSEL Oct 28, 2018 15:51
[2018-10-28] MEDS: ACETAMINOPHEN 325 MG TABLET PO PRN (16:24)
[2018-10-28] MEDS ORDERED: DILT120C85 PO (17:28)
[2018-10-28] MEDS ORDERED: METO50TA6 PO (17:28)
[2018-10-28] MEDS ORDERED: APIX5TAB3 PO (17:28)
--- NOTE | 2018-10-28 18:03 | DS ---
DATE OF DISCHARGE: 10/28/2018 HOSPITAL COURSE: The patient is a 63-year-old female patient, who was admitted originally with altered mental status. She has overdosed on oxycodone, Ativan and she has responded to Narcan. In fact, when she arrived, she was found to be on new onset atrial fibrillation with rapid ventricular response. She has also hypoxic respiratory failure, likely due to narcotic overdose. Her blood sugar was slightly high initially, but subsequent measurement showed the blood sugar was well within normal limit. She also has acute kidney injury that has subsequently resolved. In fact, her creatinine came down from 1.1-0.7. The patient was seen in consultation by the Cardiology Team. She was started on Cardizem, Lovenox and metoprolol. Her metoprolol was increased to 50 mg twice a day and her mental status changes normalized. Her heart rate is much better controlled and decision was made to discharge her home to continue on metoprolol, Cardizem as well as Eliquis. PHYSICAL EXAMINATION: GENERAL: When I saw her this afternoon, she looked well and was clearly in no apparent respiratory distress. No pallor, jaundice, cyanosis, or thyromegaly. No jugular venous distension. No lower limb edema. VITAL SIGNS: Her heart rate was 97, blood pressure 156/84, temperature was 98.1, respiratory rate 20, and oxygen saturation was 99% on room air. HEAD, EYES, EARS, NOSE AND THROAT: Showed normocephalic and atraumatic. NECK: Supple. HEART: Showed normal first and second sounds. No gallop, rub or murmur. CHEST: Clear to auscultation. No crepitation or rhonchi. ABDOMEN: Distended, soft, nontender. No guarding or rigidity. No organomegaly. All hernial orifice intact. Bowel sounds normal. NEUROLOGIC: She was awake, alert, responding appropriately. All cranial nerves intact. EXTREMITIES: She moves extremities without difficulty. She ambulates without assistance or assistive devices. LABORATORY DATA: White cell count was 13,400, hemoglobin 12, hematocrit 36, MCV 91, and platelet count of 363,000. Her most recent chemistry showed serum sodium 143, potassium 3.6, chloride 106, bicarbonate 27, anion gap of 10, BUN 11, creatinine 0.7, estimated GFR was 84 mL per minute. Her calcium was 8.8, magnesium was 1.9. Her hemoglobin A1c was 5.3%. Her prothrombin time, INR and aPTT are all within normal limit. Urinalysis was essentially unremarkable and was negative for nitrite and leukocyte esterase with only 3-4 rbc's, 1-4 wbc's, and no bacteria. Her toxic screen was positive for cannabinoids and benzodiazepine. She has had an echocardiogram done, which basically showed that her left ventricular systolic function is normal and ejection fraction is within normal range, ejection fraction was 60-65%. She has normal left ventricular segmental wall motion. Doppler and color flow revealed physiological tricuspid regurgitation. Pulmonary artery pressure was estimated at 32 mmHg. DISCHARGE MEDICATIONS: The patient was discharged home to continue on metoprolol tartrate 50 mg twice a day, diltiazem 120 mg once a day, and apixaban 5 mg twice a day. FINAL DISCHARGE DIAGNOSES: 1. Atrial fibrillation, rate controlled and now anticoagulated, on Eliquis. 2. Hypertension, well controlled. 3. Hypoxic respiratory failure, resolved. 4. Altered mental status due to opiate overdose, has resolved. MEJIA RESTREPO MD DR: TATI/sue JOB#: [id number] / [id number]
--- NOTE | 2018-10-28 18:35 | PN ---
DATE: 10/28/2018 SUBJECTIVE: The patient is sitting on the edge of the bed comfortably, eating her lunch, in no apparent distress. On questioning her, she denied any complaints in particular denied any chest pain, shortness of breath, palpitation, dizziness or lightheadedness. OBJECTIVE: GENERAL: On examining her, she looked somewhat pale, but no jaundice, cyanosis, or thyromegaly. No jugular venous distension. No lower limb edema. VITAL SIGNS: Her heart rate was 89, blood pressure was 136/88, temperature was 98.3, respiratory rate 20, and oxygen saturation was 98% on room air. HEAD, EYES, EARS, NOSE AND THROAT: Showed normocephalic, atraumatic. NECK: Supple. HEART: Showed irregularly irregular first heart sounds. Normal second heart sounds. No gallop, rub or murmur. CHEST: Clear to auscultation. No crepitation or rhonchi. ABDOMEN: Slightly distended, soft, nontender. NEUROLOGIC: She is awake, alert. All her cranial nerves are intact. She moves extremities without difficulty. She ambulates without assistance or assistive devices. Her intake over the last 24 hours was 1716, no output was recorded. LABORATORY DATA: Her most recent lab work showed a white cell count of 15,400, hemoglobin 12, hematocrit 36, MCV 91, and platelet count 363,000. Her chemistry showed a serum sodium 143, potassium 3.6, chloride 106, bicarbonate 27, anion gap of 10, BUN 11, creatinine 0.7, estimated GFR was 84 mL per minute. Her glucose was 98, calcium was 8.8, magnesium was 1.9. ASSESSMENT: 1. Altered mental status, resolved. 2. Acute hypoxic respiratory failure, resolved. The patient responded to Narcan. She is now oxygen saturation was 96% on room air. 3. Atrial fibrillation of uncertain duration for which the patient was started on beta kate and calcium channel kate. She continues to be on Lovenox and she will be switched to Eliquis. 4. Hypoglycemia on admission; however, all subsequent blood sugar values are all well within normal range. PLAN: My plan is to switch her to Eliquis 10 mg tonight and she will be discharged home on Eliquis 10 mg twice a day for 7 days and then 5 mg twice a day indefinitely. She is scheduled to have an echocardiogram tonight. MEJIA RESTREPO MD DR: TATI/sue JOB#: [id number] / [id number]
[2018-10-28] MEDS ORDERED: APIXABAN 5 MG TABLET. PO SCH (21:00)
[2018-10-28] MEDS ORDERED: METOPROLOL TART IMMED RELEASE 25 MG TABLET PO SCH (21:00)
== END 2018-10-28 18:56 | disposition home or self-care (01) | DRG 917 ==
LOC: ER 17:54 → 1 SOUTH 20:00
PROVIDERS: ADMIT Internal Medicine; ATTEND Internal Medicine
DX: T40.2X1A Poisoning by other opioids, accidental (unintentional), initial encounter (principal); J96.01 Acute respiratory failure with hypoxia; N17.9 Acute kidney failure, unspecified; E11.65 Type 2 diabetes mellitus with hyperglycemia; I48.91 Unspecified atrial fibrillation; M15.9 Polyosteoarthritis, unspecified; F17.210 Nicotine dependence, cigarettes, uncomplicated; F12.90 Cannabis use, unspecified, uncomplicated; E86.0 Dehydration; E11.649 Type 2 diabetes mellitus with hypoglycemia without coma; I10 Essential (primary) hypertension; Z90.710 Acquired absence of both cervix and uterus; Y92.89 Other specified places as the place of occurrence of the external cause
CPT/HCPCS: 36415; 71045; 80048; 80076; 80307; 80329; 81001; 82550; 82803; 82947; 83036; 83690; 83735; 83880; 84443; 84484; 85025; 85610; 85730; 90471; 90756; 93005; 93306; 96360; G0480; J1160; J1650; J1815; J2405; J7120; Q0163; 82003; 99285-25; Q2035